=== PATIENT | male | born 1970 | race Caucasian/White ===

== ENCOUNTER → 2018-02-06 07:00 | Outpatient (CLI) | payer OTHER, SELFPAY ==
[2018-02-06 08:37] LABS: Cholesterol 193 mg/dL (140-199); HDL Cholesterol 47 mg/dL (40-60); LDL Cholesterol Calculated 117 mg/dL (<100); Triglycerides 143 mg/dL (35-150)
== END ==
PROVIDERS: PCP Family Medicine; Visit Provider Family Medicine
DX: E78.00 Pure hypercholesterolemia, unspecified (principal)
CPT/HCPCS: 36415; 80061

== ENCOUNTER → 2018-04-29 10:28 | Outpatient (CLI) | payer OTHER, SELFPAY ==
[2018-04-29 10:49] LABS: Cholesterol 161 mg/dL (140-199); HDL Cholesterol 53 mg/dL (40-60); LDL Cholesterol Calculated 90 mg/dL (<100); Triglycerides 89 mg/dL (35-150)
== END ==
PROVIDERS: Family Provider Family Medicine; PCP Family Medicine; Visit Provider Family Medicine
DX: E78.5 Hyperlipidemia, unspecified (principal)
CPT/HCPCS: 36415; 80061

== ENCOUNTER 2019-06-22 16:23 | Emergency (ER) | payer BC, SELFPAY ==
[2019-06-22 16:27] VITALS: BP 131/86; PULSE 90; RESP 14; TEMP 36.2; O2SAT 95
[2019-06-22] MEDS: IBUPROFEN 400 MG TABLET 800 MG PO (16:35)
[2019-06-22] MEDS: ONDANSETRON 4 MG ODT PO (16:35)
--- NOTE | 2019-06-22 17:54 | ED.HA ---
HPI - Headache General Chief Complaint: Headache Stated Complaint: states cluster headache right side Time Seen by Provider: 06/22/19 17:54 Source: patient Mode of arrival: Ambulatory Limitations: no limitations History of Present Illness HPI Narrative: 48-year-old male nonsmoker with history of headaches presents with a chief complaint of a gradually worsening severe right-sided headache without any significant provocation or palliation. Patient typically can improve his headaches with ibuprofen but hasn't been helping much today. He does admit to some recent upper respiratory symptoms including runny nose, sneezing and cough. He states that he has had some increased drainage from his right nostril. He denies any facial pain and states that leaning forward actually makes things feel a bit better. He denies neck pain or any neurologic symptoms such as numbness, tingling or weakness. MD Complaint: headache Onset (ago): day(s) Onset description: gradual Location: right Severity: severe Quality: aching and throbbing Relieving factors: nothing Exacerbating factors: none Associated symptoms: none Treatments prior to arrival: acetaminophen and ibuprofen Related Data Previous Rx's Medication Instructions Recorded simvastatin 10 mg tablet 10 mg PO QPM #30 tab 11/01/18 Allergies Allergy/AdvReac Type Severity Reaction Status Date / Time No Known Drug Allergies Allergy Verified 06/22/19 16:15 Review of Systems Constitutional Constitutional: Denies chills, Denies fatigue, Denies fever(s), Denies frequent falls, Reports headache(s), Denies lethargy and Denies weakness Eyes Eyes: Denies change in vision, Denies eye discharge, Denies irritation and Denies loss of vision ENT Ears, Nose, Mouth, and Throat: Denies change in voice, Denies dizziness, Reports headache(s), Denies neck pain, Denies sore throat and Denies throat swelling Cardiovascular Cardiovascular: Denies chest pain, Denies irregular heart rhythm, Denies lightheadedness, Denies palpitations, Denies dyspnea, Denies dyspnea on exertion and Denies orthopnea Respiratory Respiratory: Denies cough, Denies dyspnea, Denies dyspnea on exertion and Denies wheezing Gastrointestinal Gastrointestinal: Denies abdominal pain, Denies change in bowel habits, Denies diarrhea, Denies nausea and Denies vomiting Genitourinary Genitourinary: Denies hematuria, Denies flank pain, Denies urinary incontinence and Denies urinary urgency Musculoskeletal Musculoskeletal: Denies back pain, Denies muscle weakness, Denies neck pain, Denies numbness and Denies tingling Integumentary/Breasts Skin/Breast: Denies pruritus, Denies erythema, Denies rash and Denies wounds Neurologic Neurologic: Denies behavioral changes, Denies confusion, Denies dizziness, Denies frequent falls, Reports headache(s), Denies loss of vision, Denies numbness, Denies tingling and Denies weakness Psychiatric Psychiatric: Denies anxiety, Denies behavioral changes, Denies confusion, Denies depression, Denies homicidal ideation and Denies suicidal ideation Endocrine Endocrine: Denies fatigue, Denies flushing and Denies palpitations Hematologic/Lymphatic Hematologic/Lymphatic: Denies easy bruising Allergic/Immunologic Allergic/Immunologic: Denies urticaria, Denies throat swelling and Denies wheezing Patient History Medical History Family history of premature coronary artery disease (09/15/15) Hyperlipidemia (Chronic) Plantar fasciitis of right foot (Chronic) Surgical History No history of previous surgery (Chronic) Family History Other Family history of premature coronary artery disease Social History Smoking Status: Never smoker Smoking Status: Never smoker alcohol intake frequency: 0-2 drinks per day Substance Use Type: does not use Exam Narrative Exam Narrative: GENERAL: [48] year old patient appears stated age. Well-nourished, well-developed patient, in mild distress. Massaging the right side of his head, sitting in a dark room HEAD: Atraumatic. Normocephalic. EYES: Pupils equal round and reactive. Extraocular motions intact. No scleral icterus. No injection or drainage. ENT: Nose without bleeding, purulent drainage. Throat without erythema, tonsillar hypertrophy or exudate. Airway patent. NECK: Trachea midline. Non tender CARDIOVASCULAR: Regular rate and rhythm without murmurs, gallops, or rubs. RESPIRATORY: Clear to auscultation. Breath sounds equal bilaterally. No wheezes, rales, or rhonchi. GASTROINTESTINAL: Abdomen soft, non-tender, nondistended. EXTREMITIES: No edema or joint tenderness. BACK: Nontender without deformity or crepitance. No flank tenderness. NEURO: AOx3. SKIN: No rash or erythema of visible areas NIH Stroke Scale 1a. LOC: Patient is alert and keenly responsive (0) 1b. LOC Questions: Patient answers both LOC questions accurately (0) 1c. LOC Commands: Patient performs both tasks correctly (0) 2. Best Gaze: Normal (0) 3. Visual: No visual loss (0) 4. Facial palsy: Normal symmetrical movements (0) 5. Motor arm: No drift (0) 6. Motor leg: No drift (0) 7. Limb ataxia: Absent (0) 8. Sensory: Normal (0) 9. Best language: No aphasia; normal (0) 10. Dysarthria: Normal (0) 11. Extinction and inattention: No abnormality (0) NIHSS: 0 Initial Vital Signs Initial Vital Signs: Vital Signs Temperature 97.1 F L 06/22/19 16:27 Pulse Rate 90 06/22/19 16:27 Respiratory Rate 14 06/22/19 16:27 Blood Pressure 131/86 06/22/19 16:27 Pulse Oximetry 95 06/22/19 16:27 Course Course Course Narrative: Patient demonstrates tremendous relief after the above-stated therapies. Multiple etiologies of his headache including subarachnoid hemorrhage, meningitis and other considered but thought less likely given physical exam findings as well as history and physical Orders Ordered: Discontinued Medications Dexamethasone (Decadron) 10 mg IV NOW ONE Stop: 06/22/19 18:40 Last Admin: 06/22/19 19:04 Dose: 10 mg Documented by: LO Sodium Chloride (Normal Saline 0.9%) 1,000 mls @ 1,000 mls/hr IV BOLUS ONE Stop: 06/22/19 19:38 Last Infusion: 06/22/19 20:20 Dose: 0 mls/hr Documented by: Admin: 06/22/19 19:04 Dose: 1,000 mls/hr Documented by: LO Ibuprofen (Advil) 800 mg PO NOW ONE Stop: 06/22/19 16:33 Last Admin: 06/22/19 16:35 Dose: 800 mg Documented by: ROXANN Ketorolac Tromethamine (Toradol) 15 mg IV NOW ONE Stop: 06/22/19 18:40 Last Admin: 06/22/19 19:04 Dose: 15 mg Documented by: LO Metoclopramide HCl (Reglan) 10 mg IV NOW ONE Stop: 06/22/19 18:40 Last Admin: 06/22/19 19:05 Dose: 10 mg Documented by: LO Ondansetron HCl (Zofran Odt) 4 mg PO NOW ONE Stop: 06/22/19 16:33 Last Admin: 06/22/19 16:35 Dose: 4 mg Documented by: ROXANN Vital Signs Vital signs: Vital Signs - 8 hr 06/22/19 20:00 06/22/19 20:20 Pulse Rate 82 91 H Blood Pressure [Left Arm] 124/80 125/90 Pulse Oximetry 100 100 Discharge Plan Departure Patient Disposition: Home Clinical Impression: Headache Qualifiers: Headache type: cluster Headache chronicity pattern: episodic headache Intractability: not intractable Qualified Code(s): G44.019 - Episodic cluster headache, not intractable Discharge Date/Time: 06/22/19 20:39 Instructions: DI for Headache Activity Restrictions/Additional Instructions: *You have been diagnosed with [acute cluster headache resolved] *What to do: *Take medications as directed *Follow up with your primary care provider in 2-3 days, call for an appointment. Let them know you were seen in the Emergency Department and that we ask that you be seen in follow up *Return to ER if you should have any new, worsening or concerning symptoms, such as [ ] Prescriptions: No Action simvastatin 10 mg tablet 10 mg PO QPM Qty: 30 RF: 0 Referrals: Jhony Espinoza PA-C [[employer] Program Manager] - Richie Stephens MD [Primary Care Provider] -
[2019-06-22] MEDS: DEXAMETHASONE 10 MG/ML VIAL IV (19:04)
[2019-06-22] MEDS: SODIUM CHLORIDE 0.9% 1,000 ML 1000 ML IV (19:04)
[2019-06-22] MEDS: KETOROLAC 60 MG/2 ML VIAL 15 MG IV (19:04)
[2019-06-22] MEDS: METOCLOPRAMIDE 10 MG/2 ML INJ IV (19:05)
[2019-06-22 20:00] VITALS: BP 124/80; PULSE 82; O2SAT 100
[2019-06-22 20:20] VITALS: BP 125/90; PULSE 91; O2SAT 100
== END 2019-06-22 20:39 | disposition home or self-care (01) ==
PROVIDERS: Emergency Provider Emergency Medicine; Family Provider Family Medicine; PCP Family Medicine
DX: G44.019 Episodic cluster headache, not intractable (principal)
CPT/HCPCS: 36415; 96361; 96374; 96375; 99283; 99284; J1100; J1885; J2765

== ENCOUNTER 2020-10-09 19:24 | Emergency (ER) | payer OTHER, SELFPAY ==
[2020-10-09 19:32] VITALS: BP 142/97; PULSE 108; RESP 18; TEMP 36.6; O2SAT 97; BMI 31.7
--- NOTE | 2020-10-09 19:40 | DI.RAD.S_ITS ---
PROCEDURE: XR KNEE RT 3V INDICATIONS: pop/swelling TECHNIQUE: 3 views of the knee were acquired. COMPARISON: None. FINDINGS: Bones: No fractures or dislocations. Mild degenerative change. No suspicious bony lesions. Soft tissues: No joint effusion. No suspicious soft tissue calcifications. IMPRESSION: Mild degenerative change. No evidence acute bony abnormality of the right knee. If clinical suspicion and/or symptoms persist, further assessment with repeat plain films, or advanced imaging (e.g., CT, MRI, or bone scan) may be helpful for further assessment. Dictated by: Narinder Olivares M.D. on 10/09/2020 at 20:18 Approved by: Narinder Olivares M.D. on 10/09/2020 at 20:19
--- NOTE | 2020-10-09 22:04 | ED_ITS ---
HPI - Extremity Injury (Lower) General Chief Complaint: Extremity Injury, Lower Stated Complaint: rt knee injury Time Seen by Provider: 10/09/20 22:04 Source: patient Mode of arrival: Ambulatory Limitations: no limitations History of Present Illness HPI Narrative: 50-year-old gentleman with a history of hyperlipidemia works for this [employer] and was in his work vehicle earlier today when he went to get out of the car as he flexed his right knee and rotated the leg out he felt a sharp painful pop in the popliteal fossa. He initially thought nothing of it however once he was back in the car and sitting for the next 2 hours he had significant difficulty in getting out of the car again and standing and applying any weight to the knee and had developed a moderate effusion. The comes into the emergency room for further evaluation Related Data Previous Rx's Medication Instructions Recorded simvastatin 10 mg tablet See Rx Instructions .ROUTE 04/22/20 .COMPLEX #90 tab Allergies Allergy/AdvReac Type Severity Reaction Status Date / Time No Known Drug Allergies Allergy Verified 07/06/19 10:15 Review of Systems Review of Systems Narrative: Remainder of review of systems including constitutional, ENT, cardiovascular, respiratory, GI, , musculoskeletal, skin, neurologic and psychiatric systems reviewed and are unremarkable except as noted in HPI. Patient History Medical History Chicken pox (~1977) Family history of premature coronary artery disease (09/15/15) Headache (~2004) Hyperlipidemia Plantar fasciitis of right foot Surgical History Anesthesia History of knee surgery (~1987) No history of previous surgery Family History Mother Stroke Brother History of heart disease Hyperlipidemia Other Family history of premature coronary artery disease Social History Smoking Status: Never smoker second hand exposure: No alcohol intake: current (1-5 drinks a wk ) substance use type: does not use Smoking Status: Never smoker alcohol intake frequency: 0-2 drinks per day Substance Use Type: does not use Exam Narrative Exam Narrative: General: Alert appropriate in no acute distress Respiratory: Able to speak in full sentences, no obvious respiratory distress Skin: No obvious rashes, warm and dry Neurologic: Grossly intact no obvious asymmetries or abnormalities Psych, appropriate insight and affect, cooperative Extremity: Mild effusion to the right knee with no tenderness to patella and no laxity to medial or collateral lateral ligaments. No pain with manipulation of cruciate ligaments. He does have tenderness in the popliteal fossa that extends to the top of the gastrocs muscle. There are no obvious masses or cysts. No specific warmth or redness to the knee. His right leg is slightly more swollen than the left at this point Initial Vital Signs Initial Vital Signs: Vital Signs Temperature 97.9 F 10/09/20 19:32 Pulse Rate 108 H 10/09/20 19:32 Respiratory Rate 18 10/09/20 19:32 Blood Pressure 142/97 H 10/09/20 19:32 Pulse Oximetry 97 10/09/20 19:32 Course Orders Ordered: ED Orders 10/09/20 19:40 XR knee RT 3V Stat Vital Signs Vital signs: Vital Signs - 8 hr 10/09/20 23:21 Pulse Rate 81 Respiratory Rate 18 Blood Pressure 135/72 Pulse Oximetry 99 MDM - Extremity Injury (Lower) Imaging Data xr knee: Radiologist's Impression: FINDINGS: Bones: No fractures or dislocations. Mild degenerative change. No suspicious bony lesions. Soft tissues: No joint effusion. No suspicious soft tissue calcifications. IMPRESSION: Mild degenerative change. No evidence acute bony abnormality of the right knee. If clinical suspicion and/or symptoms persist, further assessment with repeat plain films, or advanced imaging (e.g., CT, MRI, or bone scan) may be helpful for further assessment. Dictated by: Narinder Olivares M.D. on 10/09/2020 at 20:18 MDM Narrative Medical decision making narrative: 50-year-old gentleman with presumed ruptured Lui's cyst. He was in his work vehicle when he flexed his knee rotated the leg out felt a significant pop and progressively worsened over the next few hours. Initial imaging was unremarkable. Exam findings and history are all consistent with the ruptured Lui cyst. Without any other significant trauma and normal exam I am not suspicious of internal knee derangement. I am not suspicious for gout or septic joint. He has responded nicely to ibuprofen and Tylenol. L&I forms are filled out. He has a next 3 days off work and I believe that should be adequate for him to return to his usual work. He is safe for home discharge Discharge Plan Departure Patient Disposition: Home Clinical Impression: Lui's cyst, ruptured Instructions: DI for Lui Cyst Activity Restrictions/Additional Instructions: Thank you for coming in today I believe you have a ruptured Lui cyst. Please use compression (the copper brace that you recently got is perfect), ice, elevation. Using 400 mg of ibuprofen (2 [id number]-lvmrhic pills) and 1 Tylenol every 6 hours can be very helpful in controlling pain. you should be able to return to work by Tuesday the If you have worsening symptoms, redness, more swelling please feel free to return to the emergency department. Please recognize that you likely will be a bit more sore tomorrow as the swelling is working its way out of the joint. Prescriptions: No Action simvastatin 10 mg tablet See Rx Instructions .ROUTE .COMPLEX Qty: 90 RF: 3 Referrals: Tk Lal, [Primary Care Provider] -
[2020-10-09 23:21] VITALS: BP 135/72; PULSE 81; RESP 18; O2SAT 99
== END 2020-10-09 23:00 | disposition home or self-care (01) ==
PROVIDERS: Emergency Provider Emergency Medicine; Family Provider Family Medicine; PCP Family Medicine
DX: M66.0 Rupture of popliteal cyst (principal)
CPT/HCPCS: 73562; 99281; 99283

== ENCOUNTER → 2020-10-31 10:02 | Outpatient (CLI) | payer OTHER, SELFPAY ==
[2020-10-31 10:52] LABS: Hemoglobin A1C% w Est Avg Glu 5.3 % (4.0-6.0)
[2020-10-31 11:08] LABS: Alanine Aminotransferase 30 IU/L (<50); Albumin 4.2 g/dL (3.5-5.0); Albumin Globulin Ratio 1.2 (1.0-2.8); Alkaline Phosphatase 60 U/L (38-126); Aspartate Aminotransferase 30 IU/L (17-59); BUN Creatinine Ratio 21.9 (6-22); Bilirubin Total 0.5 mg/dL (0.2-1.3); Blood Urea Nitrogen 21 mg/dL (9-20); Calcium 9.6 mg/dL (8.4-10.2); Carbon Dioxide 25 mmol/L (22-32); Chloride 107 mmol/L (98-107); Cholesterol 229 mg/dL (140-199); Estimated Glomerular Filt Rate > 60.0 mL/min (>60); Globulin 3.4 g/dL (1.7-4.1); Glucose 104 mg/dL (70-100); HDL Cholesterol 49 mg/dL (40-60); HEMOLYSIS < 15 (0-50); LDL Cholesterol Calculated 155 mg/dL (<100); Potassium 4.3 mmol/L (3.4-5.1); Sodium 139 mmol/L (137-145); Total Protein 7.6 g/dL (6.3-8.2); Triglycerides 125 mg/dL (35-150)
== END ==
PROVIDERS: Family Provider Family Medicine; PCP Family Medicine; Referring Provider Registered Nurse; Visit Provider Registered Nurse
DX: E78.00 Pure hypercholesterolemia, unspecified (principal)
CPT/HCPCS: 36415; 80053; 80061; 83036

== ENCOUNTER → 2021-04-07 09:48 | Outpatient (CLI) | payer OTHER, SELFPAY ==
--- NOTE | 2021-04-07 09:50 | DI.RAD.S_ITS ---
PROCEDURE: XR CHEST 2V INDICATIONS: cough TECHNIQUE: 2 views of the chest were acquired. COMPARISON: None. FINDINGS: Surgical changes and devices: None. Lungs and pleura: Lungs are clear. No pleural effusions or pneumothorax. Mediastinum: Mediastinal contours are normal. Heart size is normal. Bones and chest wall: No suspicious bony abnormalities. Soft tissues appear unremarkable. IMPRESSION: Normal chest x-ray Approved by: Carlos Larson M.D. on 04/07/2021 at 9:29
[2021-04-07 11:17] LABS: Alanine Aminotransferase 34 IU/L (<50); Albumin 4.5 g/dL (3.5-5.0); Albumin Globulin Ratio 1.4 (1.0-2.8); Alkaline Phosphatase 63 U/L (38-126); Aspartate Aminotransferase 32 IU/L (17-59); BUN Creatinine Ratio 14.5 (6-22); Bilirubin Total 0.8 mg/dL (0.2-1.3); Blood Urea Nitrogen 12 mg/dL (9-20); Calcium 9.6 mg/dL (8.4-10.2); Carbon Dioxide 26 mmol/L (22-32); Chloride 104 mmol/L (98-107); Cholesterol 180 mg/dL (140-199); Estimated Glomerular Filt Rate > 60.0 mL/min (>60); Globulin 3.2 g/dL (1.7-4.1); Glucose 107 mg/dL (70-100); HDL Cholesterol 61 mg/dL (40-60); HEMOLYSIS < 15 (0-50); LDL Cholesterol Calculated 99 mg/dL (<100); Potassium 4.1 mmol/L (3.4-5.1); Sodium 139 mmol/L (137-145); Total Protein 7.7 g/dL (6.3-8.2); Triglycerides 99 mg/dL (35-150)
== END ==
PROVIDERS: Family Provider Family Medicine; PCP Family Medicine; Referring Provider Family Medicine; Visit Provider Family Medicine
DX: R05.9 Cough, unspecified (principal); E78.5 Hyperlipidemia, unspecified
CPT/HCPCS: 36415; 71046; 80053; 80061

== ENCOUNTER → 2021-05-07 13:10 | Outpatient (CLI) | payer OTHER, SELFPAY ==
[2021-05-07 14:32] LABS: COVID19 -Nasal RAPID Negative (Negative)
== END ==
PROVIDERS: Family Provider Family Medicine; PCP Family Medicine; Referring Provider Internal Medicine; Visit Provider Internal Medicine
DX: Z20.822 Contact with and (suspected) exposure to COVID-19 (principal)
CPT/HCPCS: 87635; C9803

== ENCOUNTER → 2021-05-08 08:55 | Outpatient (CLI) | payer OTHER, SELFPAY ==
--- NOTE | 2021-05-13 09:22 | PM.PFT.1 ---
Pulmonary Function Test Referral & Results Date Patient Seen: 05/08/21 Requesting provider: Tk Lal Results: The spirometry demonstrates an FVC of 4.90 L which is 100% of predicted. The FEV1 was measured at 4.18 L which is 110% of predicted. The FEV1/FVC ratio was 85 which is 109% of predicted. Following the administration of bronchodilator there was no appreciable change. Lung volumes show an SVC of 4.93 L which is 103% of predicted. The diffusing capacity was measured at 32.75 which is 105% of predicted. The maximum voluntary ventilation was normal Interpretation: This study demonstrates normal pulmonary function
== END ==
PROVIDERS: Family Provider Family Medicine; PCP Family Medicine; Referring Provider Family Medicine; Visit Provider Family Medicine
DX: R05.9 Cough, unspecified (principal)
CPT/HCPCS: 94060; 94726; 94729

== ENCOUNTER → 2022-10-27 07:49 | Outpatient (CLI) | payer OTHER, SELFPAY ==
[2022-10-27 09:52] LABS: Alanine Aminotransferase 36 IU/L (<50); Albumin 4.2 g/dL (3.5-5.0); Albumin Globulin Ratio 1.4 (1.0-2.8); Alkaline Phosphatase 69 U/L (38-126); Aspartate Aminotransferase 28 IU/L (17-59); BUN Creatinine Ratio 14.3 (6-22); Bilirubin Total 0.6 mg/dL (0.2-1.3); Blood Urea Nitrogen 13 mg/dL (9-20); Calcium 8.9 mg/dL (8.4-10.2); Carbon Dioxide 24 mmol/L (22-32); Chloride 103 mmol/L (98-107); Cholesterol 204 mg/dL (140-199); Estimated Glomerular Filt Rate > 60 mL/min (>60); Globulin 2.9 g/dL (1.7-4.1); Glucose 95 mg/dL (70-100); HDL Cholesterol 45 mg/dL (40-60); HEMOLYSIS < 15 (0-50); LDL Cholesterol Calculated 124 mg/dL (<100); Potassium 3.8 mmol/L (3.4-5.1); Sodium 137 mmol/L (137-145); Total Protein 7.1 g/dL (6.3-8.2); Triglycerides 173 mg/dL (35-150)
[2022-10-27 10:18] LABS: Prostate Specific Antigen 0.464 ng/mL (0.10-4.00)
[2022-10-28 15:51] LABS: Labcorp Hemoglobin (Hb) A1c 5.6 % (4.8-5.6)
== END ==
PROVIDERS: Family Provider Family Medicine; PCP Family Medicine; Referring Provider Family Medicine; Visit Provider Family Medicine
DX: E78.00 Pure hypercholesterolemia, unspecified; Z00.00 Encounter for general adult medical examination without abnormal findings; E78.5 Hyperlipidemia, unspecified
CPT/HCPCS: 36415; 80053; 80061; 83036; 84153

== ENCOUNTER → 2023-06-02 09:17 | Outpatient (CLI) | payer OTHER, SELFPAY ==
[2023-06-02 10:19] LABS: Add Manual Diff / Slide Review NO; Basophils Absolute Auto 100 /uL (0-100); Basophils Percent Auto 1.1 % (0-2); Eosinophils Absolute Auto 300 /uL (0-450); Eosinophils Percent Auto 4.2 % (2-4); Hematocrit 42.1 % (41-53); Hemoglobin 14.7 g/dL (13.5-17.5); Lymphocytes Absolute Auto 2400 /uL (1100-4500); Lymphocytes Percent Auto 33.9 % (25-40); Mean Corpuscular HGB Conc 34.9 % (30-36); Mean Corpuscular Hemoglobin 29.9 PG (26-34); Mean Corpuscular Volume 85.6 fL (80-100); Monocytes Absolute Auto 700 /uL (0-900); Monocytes Percent Auto 10.3 % (3-14); Neutrophils Absolute Auto 3600 /uL (1500-7000); Neutrophils Percent Auto 50.5 % (50-75); Platelet Count 251 X10^3/uL (150-400); Red Blood Cell Count 4.92 X10^6/uL (4.5-5.9); Red Cell Distribution Width 13.3 % (11.6-14.8); White Blood Cell Count 7.2 X10^3/uL (4.5-11.0)
[2023-06-02 10:24] LABS: Hemoglobin A1C% w Est Avg Glu 5.5 % (4.0-6.0)
[2023-06-02 10:37] LABS: Alanine Aminotransferase 32 IU/L (<50); Albumin 4.1 g/dL (3.5-5.0); Albumin Globulin Ratio 1.3 (1.0-2.8); Alkaline Phosphatase 64 U/L (38-126); Aspartate Aminotransferase 29 IU/L (17-59); BUN Creatinine Ratio 15.5 (6-22); Bilirubin Total 0.6 mg/dL (0.2-1.3); Blood Urea Nitrogen 13 mg/dL (9-20); Calcium 9.4 mg/dL (8.4-10.2); Carbon Dioxide 25 mmol/L (22-32); Chloride 105 mmol/L (98-107); Cholesterol 183 mg/dL (140-199); Estimated Glomerular Filt Rate > 60 mL/min (>60); Globulin 3.1 g/dL (1.7-4.1); Glucose 108 mg/dL (70-100); HDL Cholesterol 46 mg/dL (40-60); HEMOLYSIS < 15 (0-50); LDL Cholesterol Calculated 112 mg/dL (<100); Potassium 4.2 mmol/L (3.4-5.1); Sodium 137 mmol/L (137-145); Total Protein 7.2 g/dL (6.3-8.2); Triglycerides 124 mg/dL (35-150)
== END ==
PROVIDERS: Family Provider Family Medicine; PCP Family Medicine; Referring Provider Family Medicine; Visit Provider Family Medicine
DX: R73.03 Prediabetes (principal); E78.5 Hyperlipidemia, unspecified; Z82.49 Family history of ischemic heart disease and other diseases of the circulatory system
CPT/HCPCS: 36415; 80053; 80061; 83036; 84153; 85025

== ENCOUNTER → 2024-06-12 07:48 | Outpatient (CLI) | payer OTHER, SELFPAY ==
[2024-06-12 09:16] LABS: Alanine Aminotransferase 31 IU/L (<50); Albumin 4.1 g/dL (3.5-5.0); Albumin Globulin Ratio 1.4 (1.0-2.8); Alkaline Phosphatase 69 U/L (38-126); Aspartate Aminotransferase 32 IU/L (17-59); BUN Creatinine Ratio 14.6 (6-22); Bilirubin Total 0.4 mg/dL (0.2-1.3); Blood Urea Nitrogen 14 mg/dL (9-20); Calcium 9.3 mg/dL (8.4-10.2); Carbon Dioxide 23 mmol/L (22-32); Chloride 108 mmol/L (98-107); Cholesterol 214 mg/dL (140-199); Estimated Glomerular Filt Rate > 60 mL/min (>60); Glucose 98 mg/dL (70-100); HDL Cholesterol 47 mg/dL (40-60); HEMOLYSIS < 15 (0-50); LDL Cholesterol Calculated 118 mg/dL (<100); Potassium 4.1 mmol/L (3.4-5.1); Sodium 138 mmol/L (137-145); Total Protein 7.1 g/dL (6.3-8.2); Triglycerides 245 mg/dL (35-150)
[2024-06-12 09:31] LABS: Hemoglobin A1C% w Est Avg Glu 5.3 % (4.0-6.0)
[2024-06-12 09:44] LABS: Prostate Specific Antigen 0.502 ng/mL (0.10-4.00)
== END ==
PROVIDERS: Family Provider Family Medicine; PCP Family Medicine; Referring Provider Family Medicine; Visit Provider Family Medicine
DX: Z00.00 Encounter for general adult medical examination without abnormal findings (principal); E78.00 Pure hypercholesterolemia, unspecified; R73.03 Prediabetes
CPT/HCPCS: 36415; 80053; 80061; 83036; 84153

== ENCOUNTER 2024-07-09 07:37 | Day surgery (SDC) | payer OTHER, SELFPAY ==
--- NOTE | 2024-07-09 | PATH_ITS ---
[facility] Accession Number: [id number] No. of containers..01 Tissue . 01 Material submitted: . colon - TRANSVERSE COLON . 01 Diagnosis: TRANSVERSE COLON: Tubular adenoma. MRV 07/10/2024 1350 Local . 01 Electronically signed: . Esteban Bryant MD, PhD, Pathologist NPI- [id number] . 01 Gross description: . TRANSVERSE COLON: Received in formalin is 1 fragment(s) of fraser, soft tissue measuring 0.7 x 0.3 x 0.2 cm submitted entirely in 1 cassette(s) /JOLYNN 07/10/2024 0129 Local . 01 Pathologist provided ICD-10: D12.3 . 01 CPT . 014201 Specimen Comment: A courtesy copy of this report has been sent to [facility] Pathology Performed at: [address] [facility] [id number] MD Sanjeev Patricia MD Phone: [phone]
[2024-07-09] MEDS: SODIUM CHLORIDE 0.9% 1,000 ML 125 ML IV (08:09)
[2024-07-09 08:10] VITALS: BP 126/78; PULSE 111; RESP 16; TEMP 36.1; O2SAT 99
--- NOTE | 2024-07-09 08:49 | PM.HP.1 ---
History of Present Illness History of Present Illness Date Patient Seen: 07/09/24 Time Patient Seen: 08:49 Chief complaint: Colonoscopy Narrative: 53-year-old white male presents for initial screening colonoscopy. ON LICENSE OF [facility] Medical History (Updated 07/09/24 @ 08:50 by Faisal Castro MD) Colon cancer screening (~07/09/24) Routine history and physical examination of adult Skin lesion Prediabetes Preventative health care Chronic cough Right knee pain Snoring Headache (~2004) Chicken pox (~1977) Hyperlipidemia Plantar fasciitis of right foot Family history of premature coronary artery disease (09/15/15) Surgical History Anesthesia History of knee surgery (~1987) No history of previous surgery Family History Mother Stroke Brother History of heart disease Hyperlipidemia Other Family history of premature coronary artery disease Social History Smoking Status: Never smoker second hand exposure: No alcohol intake: current substance use type: does not use Meds Home Medications and Allergies Home Medications Medication Instructions Recorded Confirmed Type ResMed AirSense 10 09/17/21 06/04/24 History simvastatin 20 mg tablet See Rx Instructions .Route 04/09/24 06/04/24 Rx .COMPLEX #90 tabs sodium,potassium,mag sulfates 17.5 See Rx Instructions PO .COMPLEX 05/30/24 06/04/24 Rx gram-3.13 gram-1.6 gram oral soln #354 mL (Suprep Bowel Prep Kit) simvastatin 20 mg tablet 20 mg PO QPM 07/09/24 07/09/24 History Allergies Allergy/AdvReac Type Severity Reaction Status Date / Time No Known Drug Allergies Allergy Verified 07/09/24 08:04 Review of Systems Review of Systems ROS: Yes All systems reviewed with the patient and are negative except as otherwise documented Exam Vital Signs (past 8 hours): - 07/09/24 08:10 Temperature 97 F L Pulse Rate 111 H Respiratory Rate 16 Blood Pressure 126/78 Pulse Oximetry 99 Oxygen Delivery Method Room Air Oxygen Delivery Method Room Air Narrative Exam Narrative: Gen: NAD, sitting comfortably in bed, appears well HEENT: Sclera are anicteric, head is normocephalic and atraumatic, trachea is midline. CV: RRR, no JVD Resp: clear to auscultation bilaterally, equal chest wall movement bilaterally Abd: soft, nontender, normoactive bowel sounds Ext: no edema, full range of motion Neuro: Cranial nerves II-XII grossly intact, no focal deficits Skin: No erythema or ecchymosis Assessment & Plan Assessment and plan (1) Colon cancer screening: Status: Acute Assessment & Plan narrative: Patient presents for colonoscopy Risks, benefits, alternatives to colonoscopy explained, including but not limited to bowel perforation or other serious complication requiring surgery at less than 1 in 5000 colonoscopies, abdominal pain, cramping or bleeding and less than 1% of colonoscopies, and the chances that we find a diagnosis that would require further intervention of about 2%. Patient agrees to proceed. Time-Based Coding :: [TOTAL MINUTES] spent with patient and on the chart (including review of chart, obtaining history, exam, reviewing outside data, placing orders, documenting exam and treatment plan, and counseling patient) on [DATE].
--- NOTE | 2024-07-09 09:18 | PM.OP.COLON ---
Operative Date/Time/Diagnoses Date of procedure: 07/09/24 Time of procedure: 09:18 Post-op diagnosis: same Procedure & Clinicians Study performed: Colonoscopy with snare polypectomy transverse colon polyp Same procedure as scheduled: Yes Surgeon: Faisal Castro Procedure Notes SCOAP/Timeout: Performed Procedure in detail: Time-out was performed. Mac was induced. Patient was placed in left lateral decubitus position. The perineum was inspected without any gross abnormality. Lubricated pediatric colonoscope was inserted and advanced to the cecum. The terminal ileum was intubated. The colonoscope was withdrawn slowly inspecting the circumference of the colon. At approximately 6 mm transverse colon polyp was removed with cold snare and retrieved completely. Very small polyps may have been missed, prep quality was adequate. Retroflexed view of the rectum showed small, non prolapsed nonbleeding internal hemorrhoids. The scope was withdrawn the patient was taken to PACU in good condition. Scope withdrawal time: 8 Sedation minutes: 14 Findings: polyp(s) (Small transverse colon polyp) Specimen(s): other (Transverse colon polyp) Complications: none Post-procedure Recommendations: Colonoscopy in 10 years (Next colonoscopy in 7-10 years) Plan for aftercare: Home Follow up: as needed Disposition: PACU
[2024-07-09 09:20] VITALS: BP 101/71; PULSE 85; RESP 19; TEMP 36.2; O2SAT 96
[2024-07-09 09:26] VITALS: BP 107/75; PULSE 82; RESP 20; O2SAT 96
[2024-07-09 09:31] VITALS: BP 112/78; PULSE 89; RESP 16; O2SAT 96
[2024-07-09 09:32] VITALS: BP 136/79; PULSE 83; RESP 15; O2SAT 97
== END 2024-07-09 09:51 | disposition home or self-care (01) ==
PROVIDERS: Family Provider Family Medicine; PCP Family Medicine; Referring Provider Surgery; Visit Provider Surgery
PROC: 0DJD8ZZ Inspection of Lower Intestinal Tract, Via Natural or Artificial Opening Endoscopic (ICD-10-PCS; CPT 45378; principal; 2024-07-09 08:45)
DX: Z12.11 Encounter for screening for malignant neoplasm of colon (principal); D12.3 Benign neoplasm of transverse colon; K64.8 Other hemorrhoids; E78.5 Hyperlipidemia, unspecified; R73.03 Prediabetes; G47.33 Obstructive sleep apnea (adult) (pediatric)
CPT/HCPCS: 45385; J2405; J2704

== ENCOUNTER → 2025-06-07 10:26 | Outpatient (CLI) | payer OTHER, SELFPAY ==
[2025-06-07 10:57] LABS: Add Manual Diff / Slide Review NO; Hematocrit 41.5 % (41-53); Hemoglobin 14.6 g/dL (13.5-17.5); Lymphocytes Absolute Auto 2400 /uL (1100-4500); Mean Corpuscular HGB Conc 35.2 % (30-36); Mean Corpuscular Hemoglobin 29.8 PG (26-34); Mean Corpuscular Volume 84.6 fL (80-100); Platelet Count 250 X10^3/uL (150-400)
[2025-06-07 11:05] LABS: Hemoglobin A1C% w Est Avg Glu 5.5 % (4.0-6.0)
[2025-06-07 11:18] LABS: Alanine Aminotransferase 25 IU/L (<50); Albumin 4.3 g/dL (3.5-5.0); Albumin Globulin Ratio 1.3 (1.0-2.8); Alkaline Phosphatase 66 U/L (38-126); Blood Urea Nitrogen 18 mg/dL (9-20); Calcium 9.0 mg/dL (8.4-10.2); Carbon Dioxide 20 mmol/L (22-32); Chloride 110 mmol/L (98-107); Cholesterol 179 mg/dL (140-199); Estimated Glomerular Filt Rate > 60 mL/min (>60); Globulin 3.2 g/dL (1.7-4.1); Glucose 107 mg/dL (70-99); HDL Cholesterol 40 mg/dL (40-60); HEMOLYSIS < 15 (0-50); Potassium 3.9 mmol/L (3.4-5.1); Sodium 139 mmol/L (137-145); Total Protein 7.5 g/dL (6.3-8.2); Triglycerides 338 mg/dL (35-150); Uric Acid 5.5 mg/dL (3.5-8.5)
[2025-06-07 11:48] LABS: Prostate Specific Antigen 0.615 ng/mL (0.10-4.00)
[2025-06-07 11:51] LABS: TSH w/ Reflex to FT4 0.90 uIU/mL (0.47-4.68)
== END ==
PROVIDERS: Family Provider Family Medicine; PCP Family Medicine; Referring Provider Family Medicine; Visit Provider Family Medicine
DX: Z00.00 Encounter for general adult medical examination without abnormal findings (principal); R73.03 Prediabetes; E78.00 Pure hypercholesterolemia, unspecified
CPT/HCPCS: 36415; 80053; 80061; 83036; 84153; 84443; 84550; 85025